=== PATIENT | female | born 1980 ===

== ENCOUNTER → 2018-12-26 21:44 | Outpatient (REF) | payer OTHER, SELFPAY ==
[2018-12-27 00:21] LABS: Vitamin D 25 Hydroxy (D3) 35.6 ng/mL (30.0-100.0)
[2018-12-27 00:38] LABS: Ferritin 20.2 ng/mL (6.27-137)
[2018-12-27 01:31] LABS: Alanine Aminotransferase 23 IU/L (9-52); Albumin 4.3 g/dL (3.5-5.0); Albumin Globulin Ratio 1.7 (1.0-2.8); Alkaline Phosphatase 44 U/L (38-126); Aspartate Aminotransferase 21 IU/L (14-36); Bilirubin Total 0.5 mg/dL (0.2-1.3); Blood Urea Nitrogen 10 mg/dL (7-17); Calcium 9.4 mg/dL (8.4-10.2); Carbon Dioxide 28 mmol/L (22-32); Chloride 102 mmol/L (98-107); Estimated Glomerular Filt Rate > 60.0 mL/min (>60); Globulin 2.6 g/dL (1.7-4.1); Glucose 80 mg/dL (70-100); HEMOLYSIS < 15 (0-50); Sodium 140 mmol/L (137-145); Total Protein 6.9 g/dL (6.3-8.2)
[2018-12-27 01:54] LABS: Add Manual Diff / Slide Review NO; Basophils Absolute Auto 100 /uL (0-100); Basophils Percent Auto 0.6 % (0-2); Eosinophils Absolute Auto 100 /uL (0-450); Eosinophils Percent Auto 1.1 % (2-4); Hematocrit 39.8 % (36-46); Hemoglobin 13.1 g/dL (12.0-16.0); Lymphocytes Absolute Auto 2600 /uL (1100-4500); Lymphocytes Percent Auto 29.5 % (25-40); Mean Corpuscular HGB Conc 32.9 % (30-36); Mean Corpuscular Hemoglobin 29.6 PG (26-34); Mean Corpuscular Volume 90.1 fL (80-100); Monocytes Absolute Auto 700 /uL (0-900); Monocytes Percent Auto 7.6 % (3-14); Neutrophils Absolute Auto 5300 /uL (1500-7000); Neutrophils Percent Auto 61.2 % (50-75); Platelet Count 312 X10^3/uL (150-400); Red Blood Cell Count 4.42 X10^6/uL (4.0-5.2); Red Cell Distribution Width 13.8 % (11.6-14.8); White Blood Cell Count 8.7 X10^3/uL (4.5-11.0)
[2018-12-27 05:24] LABS: HEMOLYSIS < 15 (0-50); Iron 190 ug/dL (37-170)
[2018-12-27 05:37] LABS: Percent Iron Saturation 56 % (15-50); Total Iron Binding Capacity 337 ug/dL (265-497); Transferrin 240 mg/dL (206-381)
[2018-12-27 05:43] LABS: Free T3, Triiodothyronine Free 3.52 pg/mL (2.77-5.27); Free T4, Direct Thyroxine 0.96 ng/dL (0.78-2.19)
[2018-12-27 05:56] LABS: Thyroid Stimulating Hormone 1.59 uIU/mL (0.47-4.68)
[2018-12-29 15:56] LABS: C.albicans IgA 0.3; C.albicans IgG 0.2; C.albicans IgM 0.4 (<1.0)
[2019-01-02 00:02] LABS: Methylmalonic Acid 438 nmol/L (87-318)
== END ==
LOC: LAB 21:44
PROVIDERS: Visit Provider Acupuncturist
DX: R53.83 Other fatigue (principal); K59.00 Constipation, unspecified; R14.0 Abdominal distension (gaseous)
CPT/HCPCS: 36415; 80053; 82306; 82728; 83540; 83550; 83921; 84439; 84443; 84481; 85025; 86628